=== PATIENT | female | born 1990 | race Caucasian/White ===

== ENCOUNTER 2017-06-16 14:05 | Emergency (ER) | payer MEDICAID ==
[~2017-06-16] VITALS: Ht 160 cm; Wt 43.6 kg
[2017-06-16 14:57] LABS: UA SPECIFIC GRAVITY 1.025 (1.005-1.035); microscopic required? YES; urine erythrocyte 3+ (NEGATIVE)
[2017-06-16 15:29] LABS: CALCIUM 9.3 mg/dL (8.5-10.1); CARBON DIOXIDE 27.2 mmol/L (21-32); CHLORIDE SERUM 105 mmol/L (98-107); CREATININE SERUM 0.7 mg/dL (0.6-1.0); GFR1 > 60 mL/min; GLUCOSE SERUM 96 mg/dL (74-106); POTASSIUM SERUM 3.1 mmol/L (3.5-5.1); SODIUM SERUM 140 mmol/L (136-145)
[2017-06-16 15:34] LABS: BASOPHIL % 0.4 % (0-2); PLATELET COUNT 221 x10^3mcL (130-400)
[2017-06-16 15:43] LABS: ALBUMIN 4.1 g/dL (3.4-5.0); ALKALINE PHOSPHATASE 58 U/L (46-116); ALT/SGPT 12 U/L (14-59); AMYLASE 58 U/L (25-115); AST/SGOT 15 U/L (15-37); BILIRUBIN TOTAL 1.1 mg/dL (0.20-1.00); LIPASE 71 IU/L (73-393); T4(THYROXINE) 7.5 ug/dL (4.7-13.3); TOTAL PROTEIN, SERUM 7.5 g/dL (6.4-8.2)
[2017-06-16 16:07] VITALS: BP 105/68
[2017-06-16 17:32] LABS: AMPHETAMINE QUAL UR NONE DETECTED (NEG <=1000)
== END 2017-06-16 16:07 | disposition home or self-care (01) ==
LOC: ED 14:05
PROVIDERS: Emergency Medicine
DX: K59.00 Constipation, unspecified (principal); E87.6 Hypokalemia
CPT/HCPCS: 36415; J1885

== ENCOUNTER 2019-04-01 01:03 | Emergency (ER) | payer SELFPAY ==
[~2019-04-01] VITALS: Ht 157.5 cm; Wt 49.9 kg
[2019-04-01 01:15] VITALS: Ht 157.5 cm; Wt 49.9 kg
[2019-04-01 02:42] LABS: BASOPHIL % 0.4 % (0-2); PLATELET COUNT 161 x10^3mcL (130-400); RED CELL DISTRIBUTION WIDTH 12.8 % (11.5-14.5)
[2019-04-01 02:54] LABS: CALCIUM 8.2 mg/dL (8.5-10.1); CARBON DIOXIDE 28.1 mmol/L (21-32); CHLORIDE SERUM 104 mmol/L (98-107); CREATININE SERUM 0.7 mg/dL (0.6-1.0); GFR1 > 60 mL/min; GLUCOSE SERUM 97 mg/dL (74-106); POTASSIUM SERUM 3.2 mmol/L (3.5-5.1); SODIUM SERUM 139 mmol/L (136-145)
[2019-04-01 02:59] LABS: ALKALINE PHOSPHATASE 60 U/L (46-116); ALT/SGPT 25 U/L (14-59); AST/SGOT 21 U/L (15-37); BILIRUBIN TOTAL 0.24 mg/dL (0.20-1.00); TOTAL PROTEIN, SERUM 6.8 g/dL (6.4-8.2)
[2019-04-01 03:03] LABS: ALBUMIN 3.2 g/dL (3.4-5.0)
[2019-04-01 04:08] VITALS: BP 110/67
== END 2019-04-01 04:08 | disposition home or self-care (01) ==
LOC: ED 01:03
PROVIDERS: Emergency Medicine
DX: J10.1 Influenza due to other identified influenza virus with other respiratory manifestations (principal); R55 Syncope and collapse; E87.6 Hypokalemia
CPT/HCPCS: 87804; Q0092